=== PATIENT | female | born 2000 | race Caucasian/White ===

== ENCOUNTER 2024-08-18 18:32 | Emergency (ER) | payer OTHER, SELFPAY ==
[2024-08-18 18:34] VITALS: BP 147/90
[2024-08-18 18:49] LABS: % Basophils 0.9 % (0-2); % Eosinophils 0.4 % (0-6); % Immature Granulocytes 0.2 % (0-0.5); % Lymphocytes 23.5 % (20.5-51.1); Absolute Basophils 0.1 10^3/uL (0-0.2); Absolute Lymphocytes 2.1 10^3/uL (1.2-3.4); Absolute Monocytes 0.5 10^3/uL (0.1-0.6); Absolute Neutrophils 6.2 10^3/uL (1.4-6.5); Hematocrit 37.5 % (37.0-47.0); Hemoglobin 13.8 g/dL (12.0-16.0); Mean Corp Hgb Conc. 36.8 g/dL (33.0-37.0); Mean Corpuscular Hgb 32.6 pg (27.0-31.0); Mean Corpuscular Volume 88.7 fL (81.0-99.0); Mean Platelet Volume 9.4 fL (7.4-10.4); Nucleated Red Blood Cells % 0 %; Platelet Count 289 10^3/uL (130-400); Red Blood Cell Count 4.23 10^6/uL (4.20-5.40); Red Cell Dist. Width 11.7 % (11.5-14.5)
[2024-08-18 19:02] LABS: AST (SGOT) 27 U/L (14-36); Albumin 4.5 g/dl (3.5-5.0); Alkaline Phosphatase 50 U/L (38-126); Blood Urea Nitrogen 9 mg/dl (7-17); Carbon Dioxide 26 mmol/L (22-30); Chloride 108 mmol/L (98-107); Glucose 115 mg/dl (70-99); Potassium 4.1 mmol/L (3.5-5.1); Sodium 143 mmol/L (135-145); Total Bilirubin 1.1 mg/dl (0.2-1.3); Total Protein 7.7 g/dl (6.3-8.2); eGFR > 60.00
[2024-08-18 19:12] LABS: ALT (SGPT) 33 U/L (0-35); Calcium 9.7 mg/dl (8.4-10.2)
[2024-08-18 19:19] LABS: Beta HCG Quantitative 55.08 mIU/ml
[2024-08-18 19:36] VITALS: BMI 22.2
--- NOTE | 2024-08-18 21:01 | ED.GENMED ---
History of Present Illness
General
Chief Complaint: Problems
Source: patient
Exam Limitations: none
Time Seen by Provider: 08/18/24 19:07
Nursing documentation reviewed up to this point in time: agreed with
History of Present Illness
History of Present Illness:
24 yo female is here for vaginal bleeding. She states her periods are typically irregular and her last menstrual period was mid June and she took a test on July 25 that showed positive. She has had abdominal cramping and bleeding
since this morning. She has used 2 pads.
Past History
Past History
ED Past Medical History: None
ED Past Surgical History: None
Social History
Tobacco: Non-smoker
Alcohol: None
Personal: Partner
Living: with roommate
Employment: Not employed
Review of Systems
Review of Systems
Allergies reviewed?: Yes
All Other Systems: ROS reviewed and negative except as documented in HPI and ROS
Constitutional: Denies fever or chills
Cardiac: Denies chest pain
ABD/GI: Reports abdominal pain (mild cramping); Denies nausea, vomiting or diarrhea
: Reports bleeding; Denies dysuria, frequency or difficulty voiding
Musculoskeletal: Reports no symptoms
Skin: Reports no symptoms
Neurological: Reports no symptoms
Phy Exam
Physical Exam
Physical Exam:
GENERAL: No acute distress. A&Ox3.
CONSTITUTIONAL: Afebrile.
EYES: clear, conjunctivae normal
ENMT: moist mucus membranes
RESPIRATORY: Regular respirations, nonlabored, lungs clear.
CARDIOVASCULAR: Regular rate and rhythm, no murmurs, no rubs.
GI: Soft, mild tenderness lower mid abdomen, normal BS
MUSCULOSKELETAL: Moves with ease. Well perfused.
SKIN: Warm, dry, pink
PSYCH: Normal mood and affect. Well kept, interactive and appropriate
NEUROLOGIC: Awake, alert and oriented. No focal neurological deficits
Course
Orders/Labs/Results
Orders:
Orders
08/18/24 18:37
US W Transvaginal Urgent
Reason For Exam: bleeding, unknown how many weeks
08/18/24 18:42
Type+Screen Urgent
Beta HCG Quantitative Urgent
Is this a screen?: No
Complete Blood Count/With Diff Urgent
Comprehensive Metabolic Panel Urgent
08/18/24 19:52
ABO2 Urgent
BBK Wristband Number:
Associate notified that ABO2 has been ordered: [id number]
Date: 08/18/24
Time: 18:49
Sheriff Officer ID: [id number]
Abnormal Lab Results
08/18/24
18:42
MCH 32.6 H pg
(27.0-31.0)
Chloride 108 H mmol/L
(98-107)
Glucose 115 H mg/dl
(70-99)
08/18/24 18:42
08/18/24 18:42
Vital Signs
Initial and Last Documented VS:
Initial Vital Signs
Temp Pulse Resp BP Pulse Ox
97.5 F 114 17 147/90 99
08/18/24 18:34 08/18/24 18:34 08/18/24 18:34 08/18/24 18:34 08/18/24 18:34
Last Documented Vital Signs
Temp Pulse Resp BP Pulse Ox
97.5 F 105 20 106/77 98
08/18/24 18:34 08/18/24 21:16 08/18/24 21:16 08/18/24 21:16 08/18/24 21:30
Information
Weeks gestation: N/A
Location: N/A
MDM/Problems Addressed
Differential Diagnosis Includes:
Threatened miscarriage, bleeding early , subchorionic hemorrhage, ectopic
MDM/Problems Addressed:
24 yo female is here for vaginal bleeding. She states her periods are typically irregular and her last menstrual period was mid June and she took a test on July 25 that showed positive. She has had abdominal cramping and bleeding
since this morning. She has used 2 pads.
Patient does not have a doctor. She did make an appointment with [facility] for later this week that she will no longer be keeping.
I changed her pad on arrival and she has had minimal bleeding since.
Ultrasound with transvaginal radiology report read: No identifiable intrauterine consistent with of unknown location. Recommend correlation with beta-hCG and short interval follow-up. Unremarkable sonographic
appearance of the bilateral ovaries without suspicious adnexal lesion.
Findings discussed with pt and partner
Copy of report given to patient.
Plan: Repeat HCG in 48 hours
Pt will come back here to for the test. out pt slip given.
I will get the results as pt has no doctor in this area.
I told her to call me 8 p.m. Wednesday 08/23 if she hasn't heard from me by then.
*Critical Care Note
Total Time (30-74mins, 75-104mins- exclusive of procedures): Not Applicable
ED Attending Note
-
Portions of this chart may have been created with voice recognition software.� Occasional wrong word or��sound alike� substitutions may have occurred due to the inherent limitations of voice recognition software.
Discharge Plan
Departure
Patient Disposition: Home (Routine Discharge)
Date of Disposition: 08/18/24
Time of Disposition: 21:11
Patient with high blood pressure during this ER visit?: No
Condition: Good
Discharge Problem:
Threatened miscarriage in early
Instructions: Threatened Miscarriage (DC)
Prescriptions:
No Action
No Current Medications
0
Referrals:
UNKNOWN - PT DOES,NOT KNOW [Family Provider] -
Activity Restrictions/Additional Instructions:
As we discussed, have your hormone rechecked in 48 hours here at [facility] so I can look at the results.
I will look at results on Monday evening when I come to work at 6 PM
Please call here around 8 PM at [phone] and ask for Cheri and I will inform you of the results.
If the number is going down, it is a miscarriage, if it is going up, we have to be sure there is not an ectopic
Interventions
Interventions:
*Risk Screen - Suicide Last Done: 08/18/24 18:36
*General Assessment Last Done: 08/18/24 18:36
*Neglect/Abuse Screening Last Done: 08/18/24 18:36
*ED- Fall Risk Assessment Last Done: 08/18/24 19:36
*ED COVID-19 Vaccine History Last Done: 08/18/24 18:36
*Nursing Disposition Last Done: 08/18/24 21:30
ED-Female Genitourinary Assessment Last Done: 08/18/24 19:36
Discharge Date and Time
Discharge Date/Time: 08/18/24 21:41
Print Language: ICELANDIC
[2024-08-18 21:16] VITALS: BP 106/77
== END 2024-08-18 21:41 | disposition home or self-care (01) ==
LOC: EMR 18:32
PROVIDERS: EMERGENCY PHYSICIAN Emergency Medicine
DX: O20.0 Threatened abortion (principal); R10.9 Unspecified abdominal pain
CPT/HCPCS: 99284; 76801; 76817; 80053; 84702; 85025; 86850; 86900; 86901

== ENCOUNTER → 2024-08-21 08:05 | Outpatient (REF) | payer OTHER, SELFPAY ==
[2024-08-21 09:56] LABS: Beta HCG Quantitative 14.74 mIU/ml
== END ==
LOC: REG 08:05
PROVIDERS: ATTENDING PHYSICIAN Registered Nurse
DX: O02.81 Inappropriate change in quantitative human chorionic gonadotropin (hCG) in early pregnancy (principal)
CPT/HCPCS: 36415; 84702